=== PATIENT | female | born 1960 | race Caucasian/White ===

== ENCOUNTER 2020-06-24 18:25 | Emergency (ER) | payer OTHER ==
[2020-06-24 19:36] LABS: BILIRUBIN 1+ mg/dL (NEGATIVE); BLOOD NEGATIVE Ery/uL (NEGATIVE); CLARITY CLEAR (CLEAR); COLOR ORANGE (YELLOW); GLUCOSE (U) TRACE mg/dL (NORMAL); LEUKOCYTES 2+ Leu/uL (NEGATIVE); NITRITE POSITIVE (NEGATIVE); PROTEIN 2+ mg/dL (NEGATIVE)
[2020-06-24 19:43] LABS: BACTERIA 1+
[2020-06-24 20:15] LABS: BASOPHIL 0.7 % (0-2); EOSINOPHIL 4.2 % (0-5); HCT 36.4 % (37.0-47.0); HGB 11.5 g/dl (12.5-16.0); LYMPHOCYTE 26.6 % (15-48); MCHC 31.6 g/dL (32.0-36.0); MONOCYTE 10.4 % (0-12); MPV 9.3 fL (6.0-9.5); NEUTROPHIL 57.6 % (41-80); NRBC 0; PLT 146 K/uL (150-400); RBC 3.83 M/uL (4.20-5.40); RDW 12.7 % (11.5-14.0)
[2020-06-24 20:34] LABS: INR 1.12 (0.9-1.2); PROTHROMBIN TIME 13.7 SECONDS (11.4-13.6)
[2020-06-24 20:35] LABS: PTT 29.7 SECONDS (22.2-34.7)
[2020-06-24 20:36] LABS: ALBUMIN 3.6 g/dL (3.4-5.0); BILIRUBIN - TOTAL 0.5 mg/dL (0.2-1.0); CREATININE 0.92 mg/dL (0.51-0.95); D-DIMER 0.48 ug/mLFEU (0.00-0.41); GLOBULIN (CALCULATION) 3.4 g/dL; POTASSIUM 3.9 mmol/L (3.5-5.1)
[2020-06-24 20:44] LABS: LACTIC ACID 0.6 mmol/L (0.4-1.9)
[2020-06-24] MEDS ORDERED: BACTRIM DS TAB1 EACH PO (21:53)
== END 2020-06-24 22:20 | disposition home or self-care (01) ==
LOC: FER 18:25
PROVIDERS: Emergency Medicine
DX: N39.0 Urinary tract infection, site not specified (principal); R20.2 Paresthesia of skin; R63.0 Anorexia; M54.2 Cervicalgia; Z87.440 Personal history of urinary (tract) infections; Z98.84 Bariatric surgery status; Z98.890 Other specified postprocedural states; Z88.5 Allergy status to narcotic agent
CPT/HCPCS: 36415; 70450; 71045; 80053; 81001; 83605; 84484; 85025; 85379; 85610; 85730; 87040; 93005; J0696; J1642; J1885

== ENCOUNTER → 2021-09-28 | Day surgery (SDC) | payer OTHER ==
[~2021-09-28] VITALS: Ht 165.1 cm; Wt 83.9 kg
[~2021-09-28] MED LIST: BACTRIM DS TAB1 EACH PO; BUPROPION XL300 MG PO; BUSPAR5 MG PO; CYMBALTA 30MG C30 MG PO; MELOXICAM15 MG PO; MONTELUKAST SOD10 MG PO; NITROFURANTOIN50 MG PO; PANTOPRAZOLE SO20 MG PO; PHENERGAN25 M1 PO; TRAZODONE 100M100 MG PO
== END | disposition home or self-care (01) ==
LOC: FAS 09:53
DX: K90.9 Intestinal malabsorption, unspecified (principal); K21.9 Gastro-esophageal reflux disease without esophagitis; M19.90 Unspecified osteoarthritis, unspecified site; E11.9 Type 2 diabetes mellitus without complications; J45.909 Unspecified asthma, uncomplicated; Z95.828 Presence of other vascular implants and grafts; Z98.84 Bariatric surgery status; Z86.73 Personal history of transient ischemic attack (TIA), and cerebral infarction without residual deficits; Z88.6 Allergy status to analgesic agent; Z88.5 Allergy status to narcotic agent; Z90.49 Acquired absence of other specified parts of digestive tract; Z90.710 Acquired absence of both cervix and uterus; Z80.0 Family history of malignant neoplasm of digestive organs; Z87.891 Personal history of nicotine dependence
CPT/HCPCS: 71045; 76000; C1788; J0690; J1100; J1644; J1885; J1956; J2405; J2550; J2704; J3010; J7120